=== PATIENT | female | born 1960 | race Caucasian/White ===

== ENCOUNTER 2016-10-18 18:27 | Emergency (ER) | payer BC ==
[2016-10-18] MEDS ORDERED: IPRATROPIUM/ALBUTEROL 3 ML DEYVIAL ONE (18:55)
[2016-10-18] MEDS ORDERED: IPRATROPIUM/ALBUTEROL 3 ML DEYVIAL IH ONE (19:00)
[2016-10-18 19:56] VITALS: RESP 22
[2016-10-18] MEDS ORDERED: AZITHROMYCIN 250 MG TAB PO ONE (19:56)
[2016-10-18] MEDS ORDERED: predniSONE 20 MG TAB PO ONE (19:56)
--- NOTE | 2016-10-18 20:00 | UCPHY ---
H & P Patient Type: Established Chief Complaint Nursing Narrative: fever/cough/congestion/loss of voice since Wednesday. now with severe chest pain from coughing. Time Seen by Provider: 10/18/16 19:20 HPI/ROS: CHIEF COMPLAINT: Cough, fevers, laryngitis, HISTORY OF PRESENT ILLNESS: Patient is a 48-year-old female with a history of asthma comes to the Urgent Care complaining of a cough intermittent fevers and now having lost her voice. Her symptoms have been ongoing for about a week. She has been using her Qvar inhaler with moderate improvement. No headache. No chest pain. She states that her cough is spreading her from sleeping. She is given albuterol nebulizer triage which she states has made a big difference. REVIEW OF SYSTEMS: Constitutional: denies: chills, fever, recent illness, recent injury EENTM: denies: blurred vision, double vision, nose congestion Respiratory: See HPI Cardiac: denies: chest pain, irregular heart rate, lightheadedness, palpitations Gastrointestinal/Abdominal: denies: abdominal pain, diarrhea, nausea, vomiting, blood streaked stools Genitourinary: denies: dysuria, frequency, hematuria, pain Musculoskeletal: denies: joint pain, muscle pain Skin: denies: lesions, rash, jaundice, bruising Neurological: denies: headache, numbness, paresthesia, tingling, dizziness, weakness Hematologic/Lymphatic: denies: blood clots, easy bleeding, easy bruising Immunologic/allergic: denies: HIV/AIDS, transplant EXAM: GENERAL: Well-appearing, well-nourished and in no acute distress. HEAD: Atraumatic, normocephalic. EYES: Pupils equal round and reactive to light, extraocular movements intact, sclera anicteric, conjunctiva are normal. ENT: TMs normal, nares patent, oropharynx clear without exudates. Moist mucous membranes. NECK: Normal range of motion, supple without lymphadenopathy or JVD. LUNGS: Mild diffuse expiratory wheezing. Improves with albuterol. HEART: Regular rate and rhythm without murmurs, rubs or gallops. ABDOMEN: Soft, nontender, normoactive bowel sounds. No guarding, no rebound. No masses appreciated. BACK: No CVA tenderness, no spinal tenderness, step-offs or deformities EXTREMITIES: Normal range of motion, no pitting or edema. No clubbing or cyanosis. NEUROLOGICAL: Cranial nerves II through XII grossly intact. Normal speech, normal gait. 5/5 strength, normal movement in all extremities, normal sensation PSYCH: Normal mood, normal affect. SKIN: Warm, dry, normal turgor, no visible rashes or lesions. 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/depression, asthma, hysterectomy, seizure disorder - Family History Significant Family History: No pertinent family hx - Social History Smoking Status: Never smoked Alcohol Use: Sober Drug Use: None Constitutional: Initial Vital Signs Temperature (C) 37.4 C 10/18/16 18:51 Heart Rate 108 H 10/18/16 18:51 Respiratory Rate 22 H 10/18/16 18:51 Blood Pressure 138/73 H 10/18/16 18:51 O2 Sat (%) 93 10/18/16 18:51 O2 Delivery Mode Room Air Allergies/Adverse Reactions: ibuprofen [From Advil] Allergy (Verified 10/18/16 18:48) Sulfa (Sulfonamide Antibiotics) Allergy (Verified 10/18/16 18:48) sulfamethoxazole [From Bactrim] Allergy (Verified 10/18/16 18:48) trimethoprim [From Bactrim] Allergy (Verified 10/18/16 18:48) Home Medications: Medication Instructions Recorded Keppra 07/15/11 LEVOTHYROXINE SODIUM [Synthroid] 125 mcg PO 07/15/11 Albuterol [Proventil Neb] 3 ml IH Q4-6PRN PRN #24 deyvial 06/12/12 Fluticasone Hfa 110 Mcg [Flovent 1 puffs IH BID 10/24/12 110 MCG Hfa MDI (RX)] Pregabalin [Lyrica] 10/24/12 AZITHROMYCIN [Z-PACK] 250 mg PO DAILY #4 tab 10/18/16 Albuterol [Proventil Neb] 3 ml IH Q4-6PRN PRN #24 deyvial 10/18/16 Clobazam [Onfi] 20 mg PO BID 10/18/16 Qvar 10/18/16 Medical Decision Making - Diagnostics Imaging: X-ray: [chest x-ray ] was obtained. I viewed the images myself on the PACS system. My interpretation of the images is: Consistent with bronchitis. The radiologist interpretation is [pending]. ED Course/Re-evaluation: Patient improved significantly with albuterol. She is well appearing. I will start her on antibiotics and a steroid course as well as albuterol for her home nebulizer. She is happy with this plan and declines further workup or testing. Vital signs are stable. 8:20 p.m. the patient's vital signs are stable. She is well appearing. She is eager to go home. She is happy with the plan. We discussed follow-up and indications for returning to the emergency department. She was tachycardic initially because of albuterol but no longer is. She is not hypoxic. Differential Diagnosis: Partial list of the Differential diagnosis considered include but were not limited to; bronchitis, pneumonia, sepsis , influenza, strep throat and although unlikely based on the history and physical exam, I also considered PE, acute coronary disease, CHF. I discussed these differential diagnoses and the plan with the patient as well as the usual and expected course. The patient understands that the diagnosis is provisional and that in medicine we are not always correct and that further workup is often warranted. Usual and customary warnings were given. All of the patient's questions were answered. The patient was instructed to return to the emergency department should the symptoms at all worsen or return, otherwise to followup with the physician as we discussed. - Data Points Medications Given: Discontinued Medications Albuterol/Ipratropium (Duoneb) 3 ml IH EDNOW ONE Stop: 10/18/16 19:01 Last Admin: 10/18/16 19:01 Dose: 3 ml Azithromycin (Zithromax) 500 mg PO EDNOW ONE PRN Reason: Protocol Stop: 10/18/16 19:57 Last Admin: 10/18/16 20:12 Dose: 500 mg Prednisone (Prednisone) 60 mg PO EDNOW ONE Stop: 10/18/16 19:57 Last Admin: 10/18/16 20:12 Dose: 60 mg Departure - Departure Disposition: Home, Routine, Self-Care Clinical Impression: Bronchitis Condition: Fair Instructions: Acute Bronchitis (ED) Referrals: SHELLEY DOUGLAS [Primary Care Provider] - As per Instructions Prescriptions: Albuterol [Proventil Neb] 3 ml IH Q4-6PRN PRN #24 deyvial PRN Reason: Wheezing AZITHROMYCIN [Z-PACK] 250 mg PO DAILY #4 tab - PQRS PQRS Measurement: Not applicable
[2016-10-18 20:15] VITALS: BP 106/65; PULSE 103; TEMP 97.7; O2SAT 95
== END 2016-10-18 20:46 | disposition home or self-care (01) ==
LOC: CED 18:27
DX: J20.9 Acute bronchitis, unspecified (principal); J45.909 Unspecified asthma, uncomplicated
CPT/HCPCS: 71020-PO; 99214-PO; G0463-PO

== ENCOUNTER → 2017-12-06 | Outpatient (CLI) | payer BC | LOC: CIMAGING 10:19 | PROVIDERS: ATTEND Family Medicine | DX: Z12.31 Encounter for screening mammogram for malignant neoplasm of breast (principal) ==

== ENCOUNTER 2018-01-18 15:31 | Emergency (ER) | payer BC ==
[2018-01-18] MEDS ORDERED: ASPIRIN 81 MG CHEWABLE TAB PO ONE (16:03)
[2018-01-18] MEDS ORDERED: ONDANSETRON 4 MG/2 ML VIAL IVP ONE (16:06)
--- NOTE | 2018-01-18 16:06 | EDPHY ---
H & P Stated Complaint: CP Time Seen by Provider: 01/18/18 15:44 HPI/ROS: CHIEF COMPLAINT: Chest pain HISTORY OF PRESENT ILLNESS: Patient is a 57-year-old female who comes to the emergency department complaining of an episode of chest discomfort last night around 3:00 a.m. That woke her up from sleep. She describes it as the sun radiating from her chest. She states that it was not exactly a pain or pressure or burning sensation. She denies shortness of breath or diaphoresis associated. No lightheadedness or dizziness. No recent fevers chills or infections. No recent travel. She does not smoke. No leg pain or swelling. She states that her symptoms persisted for about an hour and then resolved. She has not had any chest complaints since the then and she was able to go back to sleep. She did however have a single episode of nonbloody diarrhea this morning and now feels slightly nauseous. REVIEW OF SYSTEMS: Constitutional: denies: chills, fever, recent illness, recent injury EENTM: denies: blurred vision, double vision, nose congestion Respiratory: denies: cough, shortness of breath Cardiac: See HPI denies: irregular heart rate, lightheadedness, palpitations Gastrointestinal/Abdominal: See HPI denies: abdominal pain, vomiting, blood streaked stools Genitourinary: denies: dysuria, frequency, hematuria, pain Musculoskeletal: denies: joint pain, muscle pain Skin: denies: lesions, rash, jaundice, bruising Neurological: denies: headache, numbness, paresthesia, tingling, dizziness, weakness Hematologic/Lymphatic: denies: blood clots, easy bleeding, easy bruising Immunologic/allergic: denies: HIV/AIDS, transplant EXAM: GENERAL: Well-appearing, well-nourished and in no acute distress. HEAD: Atraumatic, normocephalic. EYES: Pupils equal round and reactive to light, extraocular movements intact, sclera anicteric, conjunctiva are normal. ENT: TMs normal, nares patent, oropharynx clear without exudates. Moist mucous membranes. NECK: Normal range of motion, supple without lymphadenopathy or JVD. LUNGS: Breath sounds clear to auscultation bilaterally and equal. No wheezes rales or rhonchi. HEART: Regular rate and rhythm without murmurs, rubs or gallops. ABDOMEN: Soft, nontender, normoactive bowel sounds. No guarding, no rebound. No masses appreciated. BACK: No CVA tenderness, no spinal tenderness, step-offs or deformities EXTREMITIES: Normal range of motion, no pitting or edema. No clubbing or cyanosis. NEUROLOGICAL: Cranial nerves II through XII grossly intact. Normal speech, normal gait. 5/5 strength, normal movement in all extremities, normal sensation PSYCH: Normal mood, normal affect. SKIN: Warm, dry, normal turgor, no visible rashes or lesions. Source: Patient Exam Limitations: No limitations - Personal History Current Tetanus/Diphtheria Vaccine: No Tetanus Vaccine Date: 2008 - Medical/Surgical History Hx Asthma: Yes Hx Chronic Respiratory Disease: No Hx Diabetes: No Hx Cardiac Disease: No Hx Renal Disease: No Hx Cirrhosis: No Hx Alcoholism: No Hx HIV/AIDS: No Hx Splenectomy or Spleen Trauma: No Other PMH: SZ- brain surg in Mar/depression, asthma, hysterectomy, seizure disorder - Family History Significant Family History: No pertinent family hx - Social History Smoking Status: Never smoked Alcohol Use: None Constitutional: Initial Vital Signs Temperature (C) 36.6 C 01/18/18 15:39 Heart Rate 67 01/18/18 15:39 Respiratory Rate 18 01/18/18 15:39 Blood Pressure 146/78 H 01/18/18 15:39 O2 Sat (%) 99 01/18/18 15:39 O2 Delivery Mode Room Air Allergies/Adverse Reactions: ibuprofen [From Advil] Allergy (Verified 01/18/18 15:44) Sulfa (Sulfonamide Antibiotics) Allergy (Verified 01/18/18 15:44) sulfamethoxazole [From Bactrim] Allergy (Verified 01/18/18 15:44) trimethoprim [From Bactrim] Allergy (Verified 01/18/18 15:44) Home Medications: Medication Instructions Recorded Keppra 07/15/11 LEVOTHYROXINE SODIUM [Synthroid] 125 mcg PO 07/15/11 Albuterol [Proventil Neb] 3 ml IH Q4-6PRN PRN #24 deyvial 06/12/12 Fluticasone Hfa 110 Mcg [Flovent 1 puffs IH BID 10/24/12 110 MCG Hfa MDI (RX)] Pregabalin [Lyrica] 10/24/12 AZITHROMYCIN [Z-PACK] 250 mg PO DAILY #4 tab 10/18/16 Albuterol [Proventil Neb] 3 ml IH Q4-6PRN PRN #24 deyvial 10/18/16 Clobazam [Onfi] 20 mg PO BID 10/18/16 Qvar 10/18/16 Medical Decision Making - Diagnostics EKG Interpretation: An EKG obtained and was read and documented in trace view. Please see trace view for full reading and report. Sinus rhythm, no acute ischemic changes Imaging Results: Imaging Impressions Chest X-Ray 01/18/18 16:03 Impression: Persistent hyperexpansion and interstitial prominence, which can be seen with COPD, with no acute findings. Imaging: Discussed imaging studies w/ square dance caller Radiologist ED Course/Re-evaluation: 5:00 p.m. the patient remains asymptomatic. Her lab work and tests are reassuring. She declines further workup and is eager to go home. She declines observation or repeat troponin. I will have her follow up with Cardiology as well as Gastroenterology. We discussed indications for returning. Her HEART score is 1. Differential Diagnosis: Partial list of the Differential diagnosis considered include but were not limited to; GERD, peptic ulcer disease, anxiety, acute coronary disease and although unlikely based on the history and physical exam, I also considered PE, pneumonia, pneumothorax, aneurysm, dissection. I discussed these differential diagnoses and the plan with the patient as well as the usual and expected course. The patient understands that the diagnosis is provisional and that in medicine we are not always correct and that further workup is often warranted. Usual and customary warnings were given. All of the patient's questions were answered. The patient was instructed to return to the emergency department should the symptoms at all worsen or return, otherwise to followup with the physician as we discussed. - Data Points Laboratory Results: Laboratory Results 01/18/18 15:55 01/18/18 15:55 01/18/18 01/18/18 01/18/18 16:35 15:55 15:55 WBC RBC Hgb Hct MCV MCH MCHC RDW Plt Count MPV Neut % (Auto) Lymph % (Auto) [place] % (Auto) Eos % (Auto) Baso % (Auto) Nucleat RBC Rel Count Absolute Neuts (auto) Absolute Lymphs (auto) Absolute Monos (auto) Absolute Eos (auto) Absolute Basos (auto) Absolute Nucleated RBC Immature Gran % Immature Gran # PT 13.3 SEC SEC (12.0-15.0) INR 0.99 (0.83-1.16) APTT 29.9 SEC SEC (23.0-38.0) D-Dimer 0.29 ug/mLFEU ug/mLFEU (0.00-0.50) Sodium 140 mEq/L mEq/L (135-145) Potassium 4.0 mEq/L mEq/L (3.3-5.0) Chloride 105 mEq/L mEq/L (97-110) Carbon Dioxide 24 mEq/l mEq/l (22-31) Anion Gap 11 mEq/L mEq/L (8-16) BUN 17 mg/dL mg/dL (7-23) Creatinine 0.8 mg/dL mg/dL (0.6-1.0) Estimated GFR > 60 Glucose 79 mg/dL mg/dL (70-100) Calcium 10.1 mg/dL mg/dL (8.5-10.4) Total Bilirubin 0.4 mg/dL mg/dL (0.1-1.4) Conjugated Bilirubin 0.4 mg/dL mg/dL (0.0-0.5) Unconjugated Bilirubin 0.0 mg/dL mg/dL (0.0-1.1) AST 27 IU/L IU/L (14-46) ALT 50 IU/L IU/L (9-52) Alkaline Phosphatase 70 IU/L IU/L (38-126) POC Troponin I 0.00 ng/mL ng/mL (0.00-0.08) Total Protein 6.9 g/dL g/dL (6.3-8.2) Albumin 4.3 g/dL g/dL (3.5-5.0) Lipase 150 IU/L IU/L (23-300) 01/18/18 15:55 WBC 6.97 10^3/uL 10^3/uL (3.80-9.50) RBC 4.70 10^6/uL 10^6/uL (4.18-5.33) Hgb 15.1 g/dL g/dL (12.6-16.3) Hct 43.5 % % (38.0-47.0) MCV 92.6 fL fL (81.5-99.8) MCH 32.1 pg pg (27.9-34.1) MCHC 34.7 g/dL g/dL (32.4-36.7) RDW 13.5 % % (11.5-15.2) Plt Count 237 10^3/uL 10^3/uL (150-400) MPV 9.8 fL fL (8.7-11.7) Neut % (Auto) 51.5 % % (39.3-74.2) Lymph % (Auto) 38.5 % % (15.0-45.0) [place] % (Auto) 6.5 % % (4.5-13.0) Eos % (Auto) 2.6 % % (0.6-7.6) Baso % (Auto) 0.6 % % (0.3-1.7) Nucleat RBC Rel Count 0.0 % % (0.0-0.2) Absolute Neuts (auto) 3.60 10^3/uL 10^3/uL (1.70-6.50) Absolute Lymphs (auto) 2.68 10^3/uL 10^3/uL (1.00-3.00) Absolute Monos (auto) 0.45 10^3/uL 10^3/uL (0.30-0.80) Absolute Eos (auto) 0.18 10^3/uL 10^3/uL (0.03-0.40) Absolute Basos (auto) 0.04 10^3/uL 10^3/uL (0.02-0.10) Absolute Nucleated RBC 0.00 10^3/uL 10^3/uL (0-0.01) Immature Gran % 0.3 % % (0.0-1.1) Immature Gran # 0.02 10^3/uL 10^3/uL (0.00-0.10) PT INR APTT D-Dimer Sodium Potassium Chloride Carbon Dioxide Anion Gap BUN Creatinine Estimated GFR Glucose Calcium Total Bilirubin Conjugated Bilirubin Unconjugated Bilirubin AST ALT Alkaline Phosphatase POC Troponin I Total Protein Albumin Lipase Medications Given: Discontinued Medications Aspirin (Aspirin) 324 mg PO EDNOW ONE Stop: 01/18/18 16:04 Last Admin: 01/18/18 16:29 Dose: 324 mg Ondansetron HCl (Zofran) 4 mg IVP EDNOW ONE Stop: 01/18/18 16:07 Last Admin: 01/18/18 16:30 Dose: 4 mg Point of Care Test Results: Chemistry 01/18/18 16:35 POC Troponin I 0.00 ng/mL ng/mL (0.00-0.08) Departure - Departure Disposition: Home, Routine, Self-Care Clinical Impression: Chest pain Qualifiers: Chest pain type: unspecified Qualified Code(s): R07.9 - Chest pain, unspecified Condition: Fair Instructions: Chest Pain (ED) Referrals: SHELLEY DOUGLAS [Primary Care Provider] - As per Instructions Bari Johns MD [Medical Doctor] - 5-7 days, call for appt. Harley Castellon MD [Medical Doctor] - 2-3 days, call for appt.
--- NOTE | 2018-01-18 16:07 | CPEKG ---
Heart Rate: 62 RR Interval: 968 P-R Interval: 172 QRSD Interval: 80 QT Interval: 436 QTC Interval: 443 P [place]: 65 QRS [place]: 18 T Wave [place]: 29 EKG Severity - BORDERLINE ECG - EKG Impression: SINUS RHYTHM EKG Impression: BORDERLINE R WAVE PROGRESSION, ANTERIOR LEADS EKG Impression: Similar to previous Electronically Signed By: Marvin Weston 18-Jan-2018 16:16:50
[2018-01-18 16:20] LABS: PLATELET COUNT 237 10^3/uL (150-400)
[2018-01-18 16:24] LABS: INR 0.99 (0.83-1.16); PROTIME(PATIENT) 13.3 SEC (12.0-15.0)
[2018-01-18 17:19] VITALS: BP 133/76
== END 2018-01-18 17:19 | disposition home or self-care (01) ==
DX: R07.9 Chest pain, unspecified (principal); J45.909 Unspecified asthma, uncomplicated
CPT/HCPCS: 84484-PO; 96374; J2405

== ENCOUNTER 2018-11-10 04:46 | Emergency (ER) | payer BC ==
[2018-11-10] MEDS ORDERED: ACETAMINOPHEN 500 MG TAB PO ONE (05:06)
--- NOTE | 2018-11-10 05:18 | EDPHY ---
H & P Stated Complaint: left calf pain started 2 hours ago Time Seen by Provider: 11/10/18 05:08 HPI/ROS: HPI CHIEF COMPLAINT: Left calf discomfort. HISTORY OF PRESENT ILLNESS: Patient is a 58-year-old female, she has a history of epilepsy, has a service dog, presents emergency room left posterior calf pain she describes as sharp stabbing it is worse with light touch to the posterior left calf. No abnormal swelling. No history of DVT or superficial thrombi this. She states this started hurting her earlier tonight. This what prompted her come to the emergency room she denies any chest pain or shortness of breath, denies any fever, denies any significant leg trauma. She does not recall an injury. Past Medical History: Seizures Past Surgical History: Denies significant surgical history Social History: Denies daily use drugs alcohol tobacco. Family History: Noncontributory ROS REVIEW OF SYSTEMS: 10 Systems were reviewed and negative with the exception of the elements mentioned in the history of present illness. Exam Constitutional triage nursing summary reviewed, vital signs reviewed, awake/ alert. Eyes normal conjunctivae and sclera, EOMI, PERRLA. HENT normal inspection, atraumatic, moist mucus membranes, no epistaxis, neck supple/ no meningismus, no raccoon eyes. Respiratory clear to auscultation bilaterally, normal breath sounds, no respiratory distress, no wheezing. Cardiovascular rate normal, regular rhythm, no murmur, no edema, distal pulses normal. Gastrointestinal soft, non-tender, no rebound, no guarding, normal bowel sounds, no distension, no pulsatile mass. Genitourinary no CVA tenderness. Musculoskeletal left lower extremity: With light touch she has significant pain to left posterior calf, calf is not swollen, good distal pulse, good cap refill normal sensation. No induration. no midline vertebral tenderness, full range of motion, no calf swelling, no tenderness of extremities, no meningismus, good pulses, neurovascularly intact. Skin pink, warm, & dry, no rash, skin atraumatic. Neurologic awake, alert and oriented x 3, AAOx3, moves all 4 extremities equally, motor intact, sensory intact, CN II-XII intact, normal cerebellar, normal vision, normal speech. Psychiatric normal mood/affect. Heme/Lymph/Immune no lymphadenopathy. Differential Diagnosis: Includes but is not limited to in a particular order DVT, superficial phlebitis, nerve injury, Ash cyst, ruptured Ash cyst Medical Decision Making: Plan for this patient ultrasound Doppler left lower extremity rule out DVT or superficial clot. Re-evaluation: Ultrasound of the left lower extremity faxed me by direct Radiology at 5:42 a.m. No evidence of deep vein thrombosis in the left lower extremity no popliteal cyst Updated patient on ultrasound results most likely she has nerve pain of her left calf, recommend warm compresses, anti-inflammatory pain medicine and rest and gentle stretching. Return emergency room if worsening pain fever not doing well. Source: Patient - Personal History Current Tetanus/Diphtheria Vaccine: No Current Tetanus Diphtheria and Acellular Pertussis (TDAP): No Tetanus Vaccine Date: 2008 - Medical/Surgical History Hx Asthma: Yes Hx Chronic Respiratory Disease: No Hx Diabetes: No Hx Cardiac Disease: No Hx Renal Disease: No Hx Cirrhosis: No Hx Alcoholism: No Hx HIV/AIDS: No Hx Splenectomy or Spleen Trauma: No Other PMH: SZ- brain surg in Sept/depression, asthma, hysterectomy, seizure disorder - Social History Smoking Status: Never smoked Constitutional: Initial Vital Signs Temperature (C) 36.7 C 11/10/18 04:47 Heart Rate 71 11/10/18 04:47 Respiratory Rate 18 11/10/18 04:47 Blood Pressure 141/58 H 11/10/18 04:47 O2 Sat (%) 100 11/10/18 04:47 O2 Delivery Mode Room Air Allergies/Adverse Reactions: ibuprofen [From Advil] Allergy (Verified 11/10/18 04:52) Sulfa (Sulfonamide Antibiotics) Allergy (Verified 11/10/18 04:52) sulfamethoxazole [From Bactrim] Allergy (Verified 11/10/18 04:52) trimethoprim [From Bactrim] Allergy (Verified 11/10/18 04:52) Home Medications: Medication Instructions Recorded Keppra 07/15/11 LEVOTHYROXINE SODIUM [Synthroid] 125 mcg PO 07/15/11 Pregabalin [Lyrica] 10/24/12 Clobazam [Onfi] 20 mg PO BID 10/18/16 Qvar 10/18/16 Medical Decision Making - Data Points Medications Given: Discontinued Medications Acetaminophen (Tylenol) 1,000 mg PO EDNOW ONE Stop: 11/10/18 05:07 Last Admin: 11/10/18 05:21 Dose: 1,000 mg Departure - Departure Disposition: Home, Routine, Self-Care Clinical Impression: Calf pain Condition: Good Instructions: Leg Cramps (ED), Muscle Cramp (ED) Additional Instructions: 1. Warm compresses. 2. Recommend alternating Tylenol Motrin every 6-8 hours for pain control. 3. Return to the emergency room if worse. Referrals: SHELLEY DOUGLAS [Primary Care Provider] - As per Instructions
[2018-11-10 06:33] VITALS: BP 127/55
== END 2018-11-10 06:32 | disposition home or self-care (01) ==
DX: M79.669 Pain in unspecified lower leg (principal); G40.409 Other generalized epilepsy and epileptic syndromes, not intractable, without status epilepticus

== ENCOUNTER → 2018-12-07 | Outpatient (CLI) | payer BC | LOC: CIMAGING 10:07 | PROVIDERS: ATTEND Family Medicine | DX: Z12.31 Encounter for screening mammogram for malignant neoplasm of breast (principal) ==